=== PATIENT | female | born 1950 | race Caucasian/White ===

== ENCOUNTER 2021-02-11 13:45 | Outpatient (CLI) | payer MEDICARE, SELFPAY ==
--- NOTE | ~2021-02-11 | DEXA_ITS ---
Bone Density Report Name: Mariama Maher Age: 70 Sex: Female Ethnicity: White Date of : 1950 Indication: osteopenia; parental hip fracture; height loss; prior fracture; hysterectomy; Referring Provider: Johnny Hoyos Study: Bone densitometry was performed. Exam Date: February 11, 2021 Accession number: [id number] Bone Density: Region BMD T-score Z-score Classification AP Spine (L1-L4) 0.950 -0.9 1.1 Normal Femoral Neck (Left) 0.549 -2.7 -1.0 Osteoporosis Total Hip (Left) 0.751 -1.6 -0.1 Osteopenia Total Hip Bilateral Avg 0.721 -1.8 -0.4 Osteopenia Femoral Neck (Right) 0.494 -3.2 -1.5 Osteoporosis Total Hip (Right) 0.691 -2.1 -0.6 Osteopenia World Health Organization criteria for BMD impression classify patients as: Normal (T-score at or above -1.0), Osteopenia (T-score between -1.0 and -2.5), or Osteoporosis (T-score at or below -2.5). 10-year Fracture Risk: FRAX not reported because: Some T-score for Spine Total or Hip Total or Femoral Neck at or below -2.5 Previous Exams: Region Exam Age BMD T-score BMD Change BMD Change Date g/cm2 vs Baseline vs Previous AP Spine(L1-L4) 02/11/2021 70 0.950 -0.9 -0.083(-8.0%)# 0.035(3.9%)* 01/25/2017 66 0.915 -1.2 -0.118(-11.4%) 0.014(1.5%) 06/05/2014 64 0.901 -1.3 -0.132(-12.8%) -0.148(-14.1%) 10/29/2010 60 1.049 0.0 0.016(1.6%) 0.016(1.6%) 09/07/2006 56 1.033 -0.1 Total Hip(Left) 02/11/2021 70 0.751 -1.6 -0.163(-17.8%) 0.025(3.5%) 01/25/2017 66 0.725 -1.8 -0.188(-20.6%) -0.082(-10.2%) 06/05/2014 64 0.807 -1.1 -0.106(-11.6%) -0.089(-9.9%)# 10/29/2010 60 0.896 -0.4 -0.017(-1.9%) -0.017(-1.9%) 09/07/2006 56 0.913 -0.2 Total Hip(Right) 02/11/2021 70 0.691 -2.1 -0.170(-19.7%) 0.002(0.3%) 01/25/2017 66 0.689 -2.1 -0.172(-20.0%) -0.096(-12.2%) 06/05/2014 64 0.785 -1.3 -0.076(-8.8%)# -0.059(-7.0%)# 10/29/2010 60 0.844 -0.8 -0.017(-1.9%) -0.017(-1.9%) 09/07/2006 56 0.861 -0.7 *Denotes significance at 95% confidence level, LSC for AP Spine = 0.022 g/cm2, LSC for Total Hip = 0.027 g/cm2 Clinical Information Provided by Patient: Has had a low trauma fracture Parent has had a hip fracture Has used the following medications: Vitamin D, Calcium Has the following medical conditions: Hysterectomy Patient maximum height was 59 Menopause Age: 62 Drinks caffeinated beverages Onset of menses at age 13 Number of children 2
--- NOTE | ~2021-02-11 | MM_ITS ---
EXAMINATION: MM screening [facility] BI w estrella HISTORY: Screening TECHNIQUE: Craniocaudal and mediolateral oblique 3-D tomosynthesis images were obtained and synthetic 2-D images were generated. CAD analysis was submitted and interpreted. COMPARISON: Comparison to multiple prior studies sequentially, with oldest reviewed study dated 03/30. BREAST PARENCHYMAL COMPOSITION: There are scattered areas of fibroglandular density. FINDINGS: There is no evidence of suspicious mass, calcification, or architectural distortion to sugg est malignancy in either breast. There has been no suspicious interval change. IMPRESSION: 1. No mammographic evidence of malignancy. 2. Recommend routine screening mammography in one year. BI-RADS Category 1: Negative Reviewed, dictated and finalized at location A.
== END 2021-02-11 13:46 | disposition home or self-care (01) ==
LOC: ANHIMG 13:49
PROVIDERS: PCP Family Medicine; Visit Provider Family Medicine
DX: Z78.0 Asymptomatic menopausal state (principal); Z12.31 Encounter for screening mammogram for malignant neoplasm of breast; M81.0 Age-related osteoporosis without current pathological fracture; M85.852 Other specified disorders of bone density and structure, left thigh; M85.851 Other specified disorders of bone density and structure, right thigh
CPT/HCPCS: 77063; 77067; 77080

== ENCOUNTER 2022-04-22 10:12 | Outpatient (CLI) | payer MEDICARE, SELFPAY ==
--- NOTE | ~2022-04-22 | MM_ITS ---
EXAMINATION: MM screening [facility] BI w estrella HISTORY: Screening mammogram TECHNIQUE: Craniocaudal and mediolateral oblique 3-D tomosynthesis images were obtained and synthetic 2-D images were generated. CAD analysis was submitted and interpreted. COMPARISON: 02/11/2021 bilateral screening mammogram 04/26/2019 postbiopsy left mammogram 04/19/2019 diagnostic left mammogram and limited left breast ultrasound 04/06/2019, 04/04/2018 bilateral screening mammogram examinations BREAST PARENCHYMAL COMPOSITION: The breasts are almost entirely fatty. FINDINGS: Biopsy marker is noted in association with approximately 6 mm opacity deep in the posterior outer mid left breast, considerably diminished in size since prebiopsy mammogram 04/06/2019. This wa s reportedly benign. Occasional bilateral benign calcifications. There is no evidence of suspicious mass, calcification, o r architectural distortion to suggest malignancy in either breast. There has been no suspicious inter porter change. IMPRESSION: 1. No mammographic evidence of malignancy. 2. Recommend routine screening mammography in one year. BI-RADS Category 2: Benign finding(s). Reviewed, dictated and finalized at location A.
== END 2022-04-22 10:13 | disposition home or self-care (01) ==
PROVIDERS: PCP Family Medicine; Visit Provider Physician Assistant
DX: Z12.31 Encounter for screening mammogram for malignant neoplasm of breast (principal)
CPT/HCPCS: 77063; 77067

== ENCOUNTER 2024-01-06 13:27 | Outpatient (CLI) | payer MEDICARE, SELFPAY ==
--- NOTE | ~2024-01-06 | MM_ITS ---
EXAMINATION: MM screening [facility] BI w estrella HISTORY: Screening mammogram TECHNIQUE: Craniocaudal and mediolateral oblique 3-D tomosynthesis images were obtained and synthetic 2-D images were generated. CAD analysis was submitted and interpreted. COMPARISON: 04/22/2022, 02/11/2021 bilateral screening mammogram examinations BREAST PARENCHYMAL COMPOSITION: The breasts are almost entirely fatty. FINDINGS: Stable small opacity at the biopsy marker in the posterior outer mid left breast. Occasiona l bilateral benign calcifications. There is no evidence of suspicious mass, calcification, or archite ctural distortion to suggest malignancy in either breast. There has been no suspicious interval campos e. IMPRESSION: 1. No mammographic evidence of malignancy. 2. Recommend routine screening mammography in one year. BI-RADS Category 2: Benign finding(s). Reviewed, dictated and finalized at location A. RER HOISTING
--- NOTE | ~2024-01-06 | DEXA_ITS ---
Bone Density Report Name: BOOKER WEST Age: 73 Sex: Female Ethnicity: White Date of : 1950 Indication: osteopenia; parental hip fracture; hysterectomy; Referring Provider: MEILA LUND Study: Bone densitometry was performed. Exam Date: January 06, 2024 Accession number: [id number] Bone Density: Region BMD T-score Z-score Classification AP Spine(L1-L4) 0.938 -1.0 1.2 Normal Femoral Neck (Left) 0.571 -2.5 -0.6 Osteoporosis Total Hip (Left) 0.762 -1.5 0.1 Osteopenia Femoral Neck (Right) 0.532 -2.9 -1.0 Osteoporosis Total Hip (Right) 0.727 -1.8 -0.2 Osteopenia Total Hip Mean 0.745 -1.7 -0.1 Osteopenia World Health Organization criteria for BMD impression classify patients as: Normal (T-score at or above -1.0), Osteopenia (T-score between -1.0 and -2.5), or Osteoporosis (T-score at or below -2.5). 10-year Fracture Risk: FRAX not reported because: Some T-score for Spine Total or Hip Total or Femoral Neck at or below -2.5 Previous Exams: Region Exam Age BMD T-score BMD Change BMD Change Date g/cm2 vs Baseline vs Previous AP Spine (L1-L4) 01/06/2024 73 0.938 -1.0 0.037 (4.1%)* -0.013 (-1.3%) 02/11/2021 70 0.950 -0.9 0.049 (5.5%)* 0.035 (3.9%)* 01/25/2017 66 0.915 -1.2 0.014 (1.5%) 0.014 (1.5%) 06/05/2014 64 0.901 -1.3 Total Hip(Left) 01/06/2024 73 0.762 -1.5 -0.045 (-5.6%) 0.012 (1.5%) 02/11/2021 70 0.751 -1.6 -0.057 (-7.0%) 0.025 (3.5%) 01/25/2017 66 0.725 -1.8 -0.082 (-10.2% -0.082 (-10.2% 06/05/2014 64 0.807 -1.1 Total Hip(Right) 01/06/2024 73 0.727 -1.8 -0.058 (-7.4%) 0.036 (5.3%)* 02/11/2021 70 0.691 -2.1 -0.094 (-12.0% 0.002 (0.3%) 01/25/2017 66 0.689 -2.1 -0.096 (-12.2% -0.096 (-12.2% 06/05/2014 64 0.785 -1.3 *Denotes significance at 95% confidence level, LSC for AP Spine = 0.022 g/cm2, LSC for Total Hip = 0.027 g/cm2 Clinical Information Provided by Patient: Parent has had a hip fracture Has used the following medications: Calcium Has the following medical conditions: Hysterectomy Patient maximum height was 59 Menopause Age: 62 Does not regularly consume dairy products Drinks caffeinated beverages Onset of menses at age 13 Number of children 2 Impression: The patient has osteoporosis, based on the Right Femoral Neck T-score. The patient has risk factors, including: parental hip fracture. No significant bone loss was observed. Discussio
== END 2024-01-06 13:28 | disposition home or self-care (01) ==
LOC: ANHIMG 13:30
PROVIDERS: PCP Emergency Medicine; Visit Provider Emergency Medicine
DX: Z12.31 Encounter for screening mammogram for malignant neoplasm of breast (principal); M81.0 Age-related osteoporosis without current pathological fracture; M85.852 Other specified disorders of bone density and structure, left thigh; M85.851 Other specified disorders of bone density and structure, right thigh
CPT/HCPCS: 77063; 77067; 77080

== ENCOUNTER 2025-01-02 15:08 | Outpatient (CLI) | payer MEDICARE, SELFPAY ==
[2025-01-02 19:04] LABS: Thyroid Stimulating Hormone 0.121 uIU/mL (0.465-4.680)
== END 2025-01-02 15:09 | disposition home or self-care (01) ==
LOC: ANHGOSHLAB 15:09
PROVIDERS: PCP Family Medicine; Visit Provider Nurse Practitioner Family
DX: E03.9 Hypothyroidism, unspecified (principal); I10 Essential (primary) hypertension
CPT/HCPCS: 36415; 84443

== ENCOUNTER 2025-05-11 07:34 | Outpatient (CLI) | payer MEDICARE, SELFPAY ==
--- NOTE | ~2025-05-11 | MM_ITS ---
EXAMINATION: MM screening [facility] BI w estrella HISTORY: Screening TECHNIQUE: Craniocaudal and mediolateral oblique 3-D tomosynthesis images were obtained and synthetic 2-D images were generated. CAD analysis was submitted and interpreted. COMPARISON: Comparison to multiple prior studies sequentially, with oldest reviewed study dated 04/2019. BREAST PARENCHYMAL COMPOSITION: Not Dense: The breasts are almost entirely fatty. FINDINGS: There is no evidence of suspicious mass, calcification, or architectural distortion to sugg est malignancy in either breast. There has been no suspicious interval change. IMPRESSION: 1. No mammographic evidence of malignancy. 2. Recommend routine screening mammography in one year. BI-RADS Category 1: Negative Reviewed, dictated and finalized at location []
--- OUTSIDE RECORDS SUMMARY | 2025-05-11 07:37 | XMS_ITS | Continuity of Care Document ---
Author Organization [facility] Address [address] [place] [address] [place] [address] Phone Care Team Providers Care Feed Inspection Supervisor Name Role Phone Agrawal OD, Marino Unavailable Unavailable Procedures Procedure Date Eye Exam & Treatment Refraction Office/outpatient Visit, Est Advance Directives Directive Yes / No Effective Date File Name No Information Encounters Encounter Description Practice Location Reason(s) For Visit Diagnoses Date Provider Providers Copied on Encounter [facility], [address] [place] [address] [address], [place], [place], [id number], tel:[phone] [facility] No Information 3-200 7 Agrawal OD Marino. [address] , [address], [place], [place], [facility], [place]. tel:[phone] Office/outpat ient Visit, Est [facility], [address] [place] [address] [address], [place], [place], [id number], tel:[phone] [facility] No Information 4-200 7 Agrawal OD Marino. [address] , [address], [place], [address], [place]. tel:[phone] Family History Family Member Type Diagnosis Age At Onset No Information Payers Payer name Insurance type Covered alliance party ID Authoriza tion(s) No Information Social History Type Description Quantity Date Captured Comments Sex Female Smoking Status No Information Chief Complaint And Reason For Visit No Information Reason For Referral Reason For Referral No Information History Of Present Illness Encounter Date Complaint History Of Prese nt Illness No Information Functional Status Date Functional Assessmen t No Information Instructions Date Instruction Additional Infor mation No Information Assessments Type Assessment Date No Information Patient Care Teams Name Effective Dates (start - stop) Status Members No Information
== END 2025-05-11 07:35 | disposition home or self-care (01) ==
LOC: ANHIMG 07:35
PROVIDERS: PCP Family Medicine; Visit Provider Family Medicine
DX: Z12.31 Encounter for screening mammogram for malignant neoplasm of breast (principal)
CPT/HCPCS: 77063; 77067